=== PATIENT | female | born 1950 | race Caucasian/White ===

== ENCOUNTER 2019-03-10 19:33 | Inpatient (IN) | payer OTHER ==
[~2019-03-10] VITALS: Ht 157.5 cm; Wt 135.3 kg
[~2019-03-10 19:33] MED LIST: ACET500; ACET500 PO; ASPI81CH PO; ATEN25 PO; Aspirin EC81 MG; B Complex #11 EACH PO; CHOL10002 PO; DICL75ER PO; Diovan Hct 1601 EACH PO; Glucophage1000 MG PO; HYDCHL12.5 PO; HYDR1TAB94 PO; INS70/30PN SC; INSDET100 SC; INSUASPI; INSUASPI SC; METF500; Novolog Fl100 UNIT/1 SC; PRED5; TOUJEO SOL300 UNIT/1 SC; VALS80; VALS80 PO
[2019-03-10] MEDS ORDERED: AMLO5 PO (19:59)
[2019-03-10] MEDS ORDERED: Glucophage1000 MG PO (19:59)
[2019-03-10] MEDS ORDERED: Novolog100 UNIT/2 SC (20:00)
[2019-03-10] MEDS ORDERED: METO25ER PO (20:00)
[2019-03-10 20:01] LABS: BASOPHILS ABSOLUTE AUTO 0.05 K/mm3 (0.00-0.23); BASOPHILS PERCENT AUTO 1 % (0-2); EOSINOPHILS ABSOLUTE AUTO 0.19 K/mm3 (0.00-0.68); EOSINOPHILS PERCENT AUTO 2 % (0-6); Hematocrit 35.1 % (33.0-51.0); Hemoglobin 10.7 g/dL (11.5-16.0); IMMATURE GRAN ABSOLUTE AUTO 0.04 K/mm3 (0.00-0.10); IMMATURE GRAN PERCENT AUTO 0 % (0-1); LYMPHOCYTES ABSOLUTE AUTO 1.78 K/mm3 (0.84-5.20); LYMPHOCYTES PERCENT AUTO 19 % (21-46); MONOCYTES ABSOLUTE AUTO 0.59 K/mm3 (0.16-1.47); MONOCYTES PERCENT AUTO 6 % (4-13); Mean Corpuscular HGB 27.5 pg (26.0-34.0); Mean Corpuscular HGB Conc 30.5 g/dL (31.5-36.5); Mean Corpuscular Volume 90 fL (80-100); Mean Platelet Volume 10.1 fL (9.1-12.4); NEUTROPHILS ABSOLUTE AUTO 6.82 K/mm3 (1.96-9.15); NEUTROPHILS PERCENT AUTO 72 % (41-73); Platelet Count 260 K/mm3 (150-400); RDW Coefficient Variation 14.2 % (11.7-14.2); RDW Standard Deviation 46.8 fL (35.1-46.3); Red Blood Cell Count 3.89 M/mm3 (3.80-5.20); White Blood Cell Count 9.47 K/mm3 (4.00-11.30)
[2019-03-10] MEDS ORDERED: OLMESARTAN PO (20:03)
[2019-03-10] MEDS ORDERED: ELIQUIS5 M2 PO (20:04)
[2019-03-10] MEDS ORDERED: CHOL10002 PO (20:04)
[2019-03-10] MEDS ORDERED: B Complex #11 EACH PO (20:04)
[2019-03-10 20:15] LABS: Albumin, Blood 3.5 g/dL (3.4-5.0); Albumin/Globulin Ratio 0.8 (0.8-1.8); Bilirubin, Total 0.2 mg/dL (0.1-1.0); Bun/Creatinine Ratio 24.4 (12.0-20.0); Creatinine, Blood 1.23 mg/dL (0.40-1.00); Globulin, Blood 4.2 g/dL (2.2-4.0); Total Protein, Blood 7.7 g/dL (6.4-8.2); Troponin I 0.108 ng/mL (0.000-0.040)
[2019-03-10 20:17] LABS: International Normalized Ratio 0.93; Prothrombin Time Results 9.9 Sec (9.7-11.5)
[2019-03-10] MEDS ORDERED: OLMESARTAN-HCT1 EAC1 PO (21:17)
[2019-03-10] MEDS ORDERED: VITAMIN D32000 UNIT PO (21:18)
[2019-03-10] MEDS ORDERED: ALBU90OI61 INH (21:19)
[2019-03-10] MEDS ORDERED: ACET500 (23:42)
[2019-03-11 02:12] LABS: Hemoglobin 9.8 g/dL (11.5-16.0); Mean Corpuscular HGB 27.9 pg (26.0-34.0); Mean Corpuscular HGB Conc 30.6 g/dL (31.5-36.5); Mean Corpuscular Volume 91 fL (80-100); Platelet Count 220 K/mm3 (150-400); RDW Coefficient Variation 14.2 % (11.7-14.2); RDW Standard Deviation 47.7 fL (35.1-46.3); Red Blood Cell Count 3.51 M/mm3 (3.80-5.20); White Blood Cell Count 8.01 K/mm3 (4.00-11.30)
[2019-03-11 02:21] LABS: Bun/Creatinine Ratio 21.5 (12.0-20.0); Calcium, Blood 8.6 mg/dL (8.5-10.1); Creatinine, Blood 1.3 mg/dL (0.40-1.00); International Normalized Ratio 0.98; Potassium, Blood 3.8 mmol/L (3.5-5.5); Prothrombin Time Results 10.4 Sec (9.7-11.5)
--- NOTE | 2019-03-11 07:21 | NUR ---
Rn summary: Patient was admitted via stretcher to room 332 at 2325 last evening. Pt has had no chest pain since admit. Pt is on telemetry which shows SR with BBB and PVC's rate in the 60's. Pt heart rate did drop below 50 while sleeping. Pt does have a pace maker that was interigated in the ED and no problems were found. Troponin did decrease with next lab draw. Pt is on a heparin gtt rate verified with Gabriel Lozano day shift nurse. Next APPT scheduled for 10 am. Pt walks to BR with cane. She is steady. Pt needs assist with IV pole. Pt is NPO after MN per Gerardo progress note. Plan for echo today. BS is q6 hours, this am 154 and 3 units novalog insulin given. Call light is in reach. Pt has had very little sleep but remains very pleasant.
--- NOTE | 2019-03-11 08:51 | NUR ---
DR FLOOD CALLED R/T QUESTION OF DIET STATUS, STATE PT MAY HAVE CARDIAC BF
--- NOTE | 2019-03-11 11:13 | NUR ---
[facility] RN UP TO TAKE OUT FOR CARDIAC CATH. DR FLOOD HAD ORIGINALLY ORDERED CARDIAC STRESS TEST HOWEVER AFTER ECHO COMPLETED & REVIEWED BY REDIPPER STRESS TEST CANCELLED & CARDIAC CATH ORDERED. REDIPPER IN TO EXPLAIN TO PT & OBTAIN CONSENT. PT IS A/O X4, PLEASANT AFFECT, HAS STATED NO CHEST PAIN OR DISCOMFORT THIS AM. DAUGHTER ACCOMPANY HER TO [facility]. PHARMACY NOTIFIED HEP GTT OFF @ THIS TIME. PT WILL GO TO PCU RM 15 AFTER PROCEDURE, REPORT CALLED TO KAREN MILLER.
--- NOTE | 2019-03-11 11:41 | NUR ---
PT ARRIVED TO PCU 15 VIA WC. PT ALERT AND ORIENTED, TR BAND ON R WRIST, C.D.I, SOFT, NO HEMATOMA. PT ABLE TO TRANSFER SELF TO BED. INSTRUCTIONS REGARDING USE OF R ARM GIVEN TO PT AND PT VERBALIZED UNDERSTANDING. PT'S FAMILY AT THE BEDSIDE. ALL QUESTIONS ANSWERED. CONTINUING TO MONITOR.
--- NOTE | 2019-03-11 13:08 | NUR ---
SPOKE TO DR. ELDER CONFIRMING THAT HEPARIN GTT IS TO REMAIN OFF AND RECEIVED ORDER TO RESTART PT'S ARVIND TAYLOR.
--- NOTE | 2019-03-11 15:58 | NUR ---
SHIFT SUMMARY: PT HAS DONE WELL SINCE TRANSFER TO PCU WITHOUT ANY ACUTE EVENTS. SHE CONTINUES TO DENY CHEST PAIN. HER R RADIAL SITE IS C/D/I, SOFT, WITH NO SIGNS OF A HEMATOMA. THE AIR CAME OUT OF THE TR BAND WITHOUT ANY COMPLICATIONS. LUNGS ARE CLEAR, RA. PT IS DOING HER OWN POSITION CHANGES APPROPRIATELY WITHOUT USING HER R HAND, DEMONSTRATING UNDERSTANDING OF ACTIVITY RESTRICTIONS BECAUSE OF RADIAL ANGIO. VOIDING WITHOUT PROBLEMS. MULTIPLE FAMILY MEMBERS IN THE ROOM. ALL QUESTIONS HAVE BEEN ANSWERED.
--- NOTE | 2019-03-11 19:59 | NUR ---
Assumed care of pt at approx 1900. Pt presents in bed with family at bedside, conversing with family. Pt is alert and oriented, VSS, TR site fully recovered by previous shift, pt compliant with R arm restriction. SBA to bathroom with wilhelm, steady gait. Pt in no apparent sign of distress, breathing easy and unlabored on RA. See shift assessment for detailed systems assessment. Pt able to make needs known, call light in reach, bed is low and locked. Will continue to monitor.
--- NOTE | 2019-03-12 07:32 | NUR ---
ASSUMED CARE: PT RESTING QUIETLY IN BED. RT CAME TO SEE PT THIS AM. NO ACUTE NEEDS OR CONCERNS AT THIS TIME.
[2019-03-12] MEDS ORDERED: ASPI81CH PO (11:11)
[2019-03-12] MEDS ORDERED: ATOR40TA PO (11:12)
--- NOTE | 2019-03-12 11:55 | NUR ---
PT'S IV DC'D WNL. PT GIVEN DC INSTRUCTIONS REGARDING CARE OF RADIAL SITE, FOLLOW UP APPOINTMENTS, AND MEDS TO TAKE AT DISCHARGE. PT TAKEN OUT VIA WHEEL CHAIR TO VEHICLE THAT DAUGHTER WAS DRIVING. DENIED FURTHER NEEDS OR CONCERNS
== END 2019-03-12 11:44 | disposition home or self-care (01) | DRG 281 ==
LOC: ER 19:33 → PCU 21:31 → MEDS 21:31 → PCU 03-11 11:28
PROVIDERS: Nurse Practitioner Acute Care; Physician Assistant; ADMIT Internal Medicine
PROC: B211YZZ Fluoroscopy of Multiple Coronary Arteries using Other Contrast (ICD-10-PCS; principal; 2019-03-11)
DX: I21.4 Non-ST elevation (NSTEMI) myocardial infarction (principal); Z68.42 Body mass index [BMI] 45.0-49.9, adult; E66.01 Morbid (severe) obesity due to excess calories; G47.33 Obstructive sleep apnea (adult) (pediatric); I48.0 Paroxysmal atrial fibrillation; I12.9 Hypertensive chronic kidney disease with stage 1 through stage 4 chronic kidney disease, or unspecified chronic kidney disease; M06.9 Rheumatoid arthritis, unspecified; N18.3 Chronic kidney disease, stage 3 (moderate); E11.22 Type 2 diabetes mellitus with diabetic chronic kidney disease; D63.1 Anemia in chronic kidney disease; Z79.01 Long term (current) use of anticoagulants; Z79.84 Long term (current) use of oral hypoglycemic drugs; Z79.4 Long term (current) use of insulin; Z79.899 Other long term (current) drug therapy
CPT/HCPCS: 36415; 71046; 80048; 80053; 82947; 83735; 83880; 84484; 85025; 85027; 85610; 85730; 93005; 93010; 93306; 93458; 94762; 96365; 99152; 99285-25; A9270; C1769; C1894; J1644; J2250; J3010; J7030; Q9967

== ENCOUNTER 2019-09-21 20:59 | Emergency (ER) | payer OTHER ==
[~2019-09-21] VITALS: Ht 157.5 cm; Wt 140.2 kg
[~2019-09-21 20:59] MED LIST changes: +ALBU90OI61 INH; +AMLO5 PO; +ATOR40TA PO; +ELIQUIS5 M2 PO; +METO25ER PO; +Novolog100 UNIT/2 SC; +OLMESARTAN PO; +OLMESARTAN-HCT1 EAC1 PO; +VITAMIN D32000 UNIT PO
[2019-09-21 21:31] LABS: Source, Urine Clean Catch
[2019-09-21 21:35] LABS: Appearance, Urine Hazy (Clear); Bilirubin, Urine Neg (Neg); Blood, Urine 5+ (Neg); Color, Urine Yellow (P-Yellow); Glucose Qualitative, Urine Neg (Neg); Ketones, Urine Neg (Neg); Leukocyte Esterase, Urine 2+ (Neg); Nitrite, Urine Neg (Neg); Protein, Urine 3+ (Neg); Urobilinogen, Urine NORM (Normal)
[2019-09-21 22:10] LABS: Bacteria Few /hpf; Red Blood Cells, Urine 50-100 /hpf (0-2); Squamous Epithelial Cells Few /hpf (Few); White Blood Cells, Urine TNTC /hpf (0-5)
[2019-09-21] MEDS ORDERED: Macrobid 100 M100 MG PO (22:59)
[2019-09-21] MEDS ORDERED: Pyridium100 MG PO (22:59)
== END 2019-09-21 23:15 | disposition home or self-care (01) ==
LOC: ER 20:59
PROVIDERS: Physician Assistant
DX: N39.0 Urinary tract infection, site not specified (principal); Z88.8 Allergy status to other drugs, medicaments and biological substances; Z79.899 Other long term (current) drug therapy; Z79.4 Long term (current) use of insulin; Z79.82 Long term (current) use of aspirin; E11.9 Type 2 diabetes mellitus without complications; I10 Essential (primary) hypertension
CPT/HCPCS: 81001; 87077; 87086; 87186; 99283

== ENCOUNTER → 2019-10-03 | Outpatient (CLI) | payer OTHER ==
[~2019-10-03] MED LIST changes: +Macrobid 100 M100 MG PO; +Pyridium100 MG PO
== END | disposition home or self-care (01) ==
LOC: LAB EV 12:00 → LAB SHORT 12:00
DX: N30.00 Acute cystitis without hematuria (principal)
CPT/HCPCS: 87077; 87086; 87186

== ENCOUNTER → 2021-12-29 | Outpatient (CLI) | payer OTHER ==
[~2021-12-29] MED LIST changes: +ONDA4ODT MM
== END | disposition home or self-care (01) ==
LOC: LAB 16:36 → LAB SHORT 16:36
DX: N39.0 Urinary tract infection, site not specified (principal)
CPT/HCPCS: 87077; 87086; 87186

== ENCOUNTER 2022-01-19 12:30 | Emergency (ER) | payer OTHER ==
[~2022-01-19] VITALS: Ht 154.9 cm; Wt 136.1 kg
== END 2022-01-19 15:58 | disposition home or self-care (01) ==
LOC: ER 12:30
DX: K56.41 Fecal impaction (principal); I10 Essential (primary) hypertension; E11.9 Type 2 diabetes mellitus without complications; Z88.8 Allergy status to other drugs, medicaments and biological substances; Z79.4 Long term (current) use of insulin; Z79.899 Other long term (current) drug therapy
CPT/HCPCS: 99283

== ENCOUNTER 2023-04-24 01:38 | Emergency (ER) | payer OTHER ==
[~2023-04-24] VITALS: Ht 157.5 cm; Wt 138.3 kg
[~2023-04-24 01:38] MED LIST changes: +GABA100 PO; +GLUCOPHAGE1000 M1 PO; +NOVOLOG FL100 UNIT/2 SC; -Novolog100 UNIT/2 SC; +OLMESARTAN-HCT1 EAC3 PO; -TOUJEO SOL300 UNIT/1 SC; +TOUJEO SOL300 UNIT/2 SC; +VITAMIN D32000 UNI1 PO; +Vitamin B Comple1 EA PO
[2023-04-24] MEDS ORDERED: LOSARTAN-HCTZ1 EACH PO (02:14)
[2023-04-24 05:58] VITALS: BP 158/64
[2023-04-24] MEDS ORDERED: BISA10S PR (06:40)
[2023-04-24] MEDS ORDERED: DOC250 PO (06:40)
== END 2023-04-24 07:30 | disposition home or self-care (01) ==
LOC: ER 01:38
DX: K59.00 Constipation, unspecified (principal); E11.9 Type 2 diabetes mellitus without complications; I10 Essential (primary) hypertension; M06.9 Rheumatoid arthritis, unspecified; I48.0 Paroxysmal atrial fibrillation; G47.30 Sleep apnea, unspecified; Z88.8 Allergy status to other drugs, medicaments and biological substances; Z79.899 Other long term (current) drug therapy; Z79.4 Long term (current) use of insulin; Z79.84 Long term (current) use of oral hypoglycemic drugs; Z79.82 Long term (current) use of aspirin
CPT/HCPCS: 74018; 99283-25; A9270

== ENCOUNTER → 2025-03-11 | Outpatient (CLI) | payer OTHER ==
[~2025-03-11] MED LIST changes: +BISA10S PR; +DOC250 PO; +LOSARTAN-HCTZ1 EACH PO
[2025-03-11 18:45] LABS: Creatinine, Urine Random 142.0 mg/dL (27.00-270.00); Microalb/Creat Ratio UR, Rand 27.183 mg/g (0.000-30.000); Microalbumin, Random Urine 38.6 mg/L (0.000-20.000)
== END | disposition home or self-care (01) ==
LOC: LAB SHORT 12:15 → LAB 12:15
PROVIDERS: Physician Assistant
DX: E11.65 Type 2 diabetes mellitus with hyperglycemia (principal); E11.36 Type 2 diabetes mellitus with diabetic cataract; E11.22 Type 2 diabetes mellitus with diabetic chronic kidney disease; E11.42 Type 2 diabetes mellitus with diabetic polyneuropathy; E11.51 Type 2 diabetes mellitus with diabetic peripheral angiopathy without gangrene; E11.59 Type 2 diabetes mellitus with other circulatory complications; E11.69 Type 2 diabetes mellitus with other specified complication; Z79.4 Long term (current) use of insulin; N18.9 Chronic kidney disease, unspecified
CPT/HCPCS: 82043; 82570